=== PATIENT | female | born 1990 | race Caucasian/White ===

== ENCOUNTER 2017-10-10 20:59 | Emergency (ER) | payer OTHER ==
[~2017-10-10] VITALS: Ht 170.2 cm; Wt 66.5 kg
[2017-10-10] MEDS ORDERED: DEXAMETHASONE 4 MG TABLET PO ONE (22:00)
[2017-10-10] MEDS ORDERED: DEXAMETHASONE 4 MG TABLET ONE (22:13)
[2017-10-10] MEDS ORDERED: LIDOCAINE-MPF 2%, 2ML ONE (22:13)
[2017-10-10] MEDS ORDERED: BENZOCAINE 20% SPRAY 0.5ML ONE (22:15)
[2017-10-10] MEDS ORDERED: LIDOCAINE 2%, 20ML SQ ONE (22:30)
[2017-10-10] MEDS ORDERED: BENZOCAINE 20% SPRAY 0.5ML TP ONE (22:30)
[2017-10-10 23:23] VITALS: BP 139/96
== END 2017-10-10 23:35 | disposition home or self-care (01) ==
LOC: ED 23:05
DX: J36 Peritonsillar abscess (principal)
CPT/HCPCS: 42700; 99283; J3490